=== PATIENT | female | born 1965 | race Caucasian/White ===

== ENCOUNTER 2018-10-16 18:10 | Inpatient (IN) | payer SELFPAY ==
[2018-10-16] MEDS ORDERED: Diltiazem HCl 125 MG, Admixture Fee 1 EACH in Sodium Chloride 0.9% 100 ML IVPB SCH (19:00)
[2018-10-16] MEDS ORDERED: niCARdipine 20MG In NaCl 20 MG/200 ML BAG ONE (19:18)
[2018-10-16] MEDS ORDERED: niCARdipine HCl 25 MG in Sodium Chloride 0.9% 250 ML 240 ML IVPB SCH (19:30)
[2018-10-16] MEDS ORDERED: Nitroglycerin 2% Ointment 1 INCH/1 GM Packet ONE (22:25)
[2018-10-17] MEDS ORDERED: niCARdipine 40MG In NaCl 40 MG/200 ML BAG IVPB SCH (00:18)
[2018-10-17] MEDS ORDERED: Acetaminophen 325 MG TAB PO PRN (00:18)
[2018-10-17] MEDS ORDERED: Ondansetron ODT 4 MG TAB PO PRN (00:18)
[2018-10-17] MEDS ORDERED: Ondansetron PF 4 MG/2 ML Vial IVP PRN (00:18)
[2018-10-17] MEDS ORDERED: niCARdipine HCl 25 MG in Sodium Chloride 0.9% 250 ML 240 ML IVPB SCH (00:45)
--- NOTE | 2018-10-17 01:50 | HP ---
The patient currently is in between doctors. She had been seeing Dr. Abigail Leavitt, but she has not seen her in several years. CHIEF COMPLAINT: I am having headaches for 3 days and I lost the vision out of my left eye. HISTORY OF PRESENT ILLNESS: Ms. Lopes is a very pleasant 53-year-old female, who has a history of hypertension. She says she has had high blood pressure for "years." It used to be well controlled when she was taking lisinopril hydrochlorothiazide. However, in the last 2 years, she has lost her insurance and has not been able to afford her medications. She has not been to the doctor in several years. She says that about 3 days ago, she started having an unusual headache, which was all over her head and then about 7:30 in the morning, she says that she suddenly lost the vision in her left eye. She says it was like a black [place] in the center with only a strip that she can see around it and this was in the left eye. She says on the right eye the vision was blurry. She denies having any chest pain except for occasional sharp twinges on the left side. She denies any shortness of breath. No nausea. No vomiting. She has not felt dizzy or lightheaded. She says that her headache actually got better in the morning before she even sought medical attention. She denies any swelling in her legs. No PND or orthopnea. She was evaluated in the ER. She had a CT scan of the brain done showing some white matter hypodensities which could be chronic small-vessel change, however, infarct could not completely be excluded and she was noted to have a blood pressure at the outside emergency room of 240 systolic and for this reason, she is being transferred and admitted to our facility. REVIEW OF SYSTEMS: All systems were reviewed and are negative except for that mentioned in the history of present illness. PAST MEDICAL HISTORY: Significant for hypertension and ARDS. PAST SURGICAL HISTORY: Significant for hysterectomy. ALLERGIES: PENICILLIN. SOCIAL HISTORY: She smokes about a half a pack to a pack a day and she has done this for about 20 years. Denies any alcohol use. No drug use. She is . She has 5 children. Her sister, Rosa Isela Paige would be her surrogate decision maker. Her children can also make decisions for her as well. CURRENT MEDICATIONS: None. FAMILY HISTORY: Significant for heart disease on both sides. She says that multiple family members on both sides "drop of either stroke or heart attack" and also heart failure and her grandmother had diabetes. PHYSICAL EXAMINATION: GENERAL: She is alert and oriented. She appears to be in no acute distress. She is well developed and well nourished. VITAL SIGNS: Currently, her blood pressure is 201/96, her heart rate is 90, respiratory rate of 17, temperature is 98.2. HEENT: Her pupils are equal, round, and reactive to light and accommodation. On the fundi, there was no evidence of any palpable edema or any hemorrhages. Throat, she has poor dentition but no oral lesions. Mucous membranes are slightly dry, but there is no erythema, no exudates. NECK: There is no adenopathy. No bruits. LUNGS: Clear to auscultation. There is no wheezing, no rhonchi. CARDIOVASCULAR: She has a normal S1 and S2. She did have a grade 2/6 systolic murmur. ABDOMEN: Obese. It is soft. It is nontender, nondistended. Positive for bowel sounds. There is no rebound, no guarding, no organomegaly. EXTREMITIES: She has no edema. There is no calf tenderness, no joint effusions. NEUROLOGIC: She has vision loss in the left eye. However, remaining cranial nerves are intact. Her muscle strength is 5/5 in both upper and lower extremities. SKIN AND INTEGUMENT: There are no skin changes and no rash. LABORATORY DATA: White blood cell count is 10.4, hemoglobin 14.4, hematocrit is 44.1, and platelet count is 247. Sodium 141, potassium 4.0, chloride is 109, CO2 is 21, BUN of 18, creatinine 0.79, glucose is 92. Urinalysis was negative and her CT scan as previously mentioned. ASSESSMENT: This is a pleasant 53-year-old female, who presents to the emergency room with hypertensive emergency with a sudden loss of vision in the left eye. 1. For the hypertensive emergency, she will need to be admitted to the ICU. Started on a Cardene drip with a goal of getting her blood pressure down about initially 25%, so in the range of 170 systolic and then slowly lower the blood pressure from there. There is a possibility of ischemic stroke as this could also be an amaurosis fugax. For this reason, we will get a carotid Doppler as well as an echo. Ophthalmology will be consulted as well. She will be monitored on telemetry for signs of irregular rhythm such as atrial fibrillation. 2. Tobacco abuse. She has been counseled on the dangers of smoking. We will also continue to stratify her risks for arteriosclerosis with checking a lipid panel. Further recommendations are to follow. Job ID: [id number]
[2018-10-17 04:38] LABS: Anion Gap 13 mmol/L (10-20); BUN (Urea Nitrogen) 16 mg/dL (9.8-20.1); Calc. Creatinine Clearance 0 mL/min (70-130); Calcium 9.7 mg/dL (7.8-10.44); Carbon Dioxide 23 mmol/L (22-29); Cardiac Risk 5.2 (Less than 4.5); Chloride 108 mmol/L (98-107); Cholesterol 193 mg/dl (< 200 Desired); Estimated GFR-MDRD 89; Glucose 90 mg/dL (70-105); HDL Cholesterol 37 mg/dL (>60 Neg Risk); LDL Cholesterol, Calculated 124 mg/dL; Potassium 3.8 mmol/L (3.5-5.1); Sodium 140 mmol/L (136-145); Triglycerides 161 mg/dL (Less than 150)
[2018-10-17 05:02] LABS: Eosinophils 3 % (0-10); Hemoglobin 14.8 g/dL (12.0-16.0); Lymphocytes 39 % (21-51); MDiff Complete? YES; Mean Corpuscular HGB CONC 33.5 g/dL (32.0-36.0); Mean Corpuscular Hemoglobin 31.3 pg (27.0-31.0); Mean Corpuscular Volume 93.3 fL (78.0-98.0); Mean Platelet Volume 8.2 fL (7.4-10.4); Monocytes 6 % (0-10); Neutrophil 52 % (42-75); Platelet Count 234 thou/uL (130-400); RBC Distribution Width 12.3 % (11.5-14.5); Red Blood Cell (RBC) Count 4.75 mill/uL (4.20-5.40); White Blood Cell (WBC) Count 10.4 thou/uL (4.8-10.8)
[2018-10-17] MEDS ORDERED: Enoxaparin Sodium 40 MG/0.4 ML SYRINGE ONE (09:23)
[2018-10-17] MEDS ORDERED: Famotidine/PF 20 mg/2ml Vial ONE (09:23)
[2018-10-17] MEDS ORDERED: Famotidine 20 MG TAB ONE (09:24)
[2018-10-17] MEDS: Famotidine 20 MG TAB PO SCH ×2 (09:27→21:19)
[2018-10-17] MEDS: Enoxaparin Sodium 40 MG/0.4 ML SYRINGE SC SCH (09:27)
[2018-10-17] MEDS ORDERED: Acetaminophen 325 MG TAB ONE (09:30)
[2018-10-17] MEDS ORDERED: hydrALAZINE 20 MG/ML VIAL SLOW IVP PRN (10:00)
--- NOTE | 2018-10-17 10:08 | ULT ---
Carotid arterial Doppler ultrasound: 10/17/2018 COMPARISON: None HISTORY: Sudden left-sided Vision loss, assess for carotid artery disease TECHNIQUE: Multiplanar grayscale sonographic imaging of the arterial structures of the neck obtained with color flow and spectral analysis. FINDINGS: Antegrade blood flow and normal arterial waveforms are documented within the carotid and ve rtebral systems bilaterally. Peak systolic velocity within the common carotid artery is 111 cm/s on the right and 82 cm/s on the l eft. Peak systolic velocity within the internal carotid artery is 110 cm/s on the right and 113 cm/s on th e left. The ICA/CCA ratio is 1.0 on the right and 1.4 on the left. IMPRESSION: No hemodynamically significant stenosis on the basis of sonographic velocity criteria.
[2018-10-17] MEDS ORDERED: Lisinopril 10 MG TAB ONE (10:15)
[2018-10-17] MEDS ORDERED: hydrALAZINE 20 MG/ML VIAL ONE (10:15)
--- NOTE | 2018-10-17 10:23 | PDOC.PN ---
- Subjective Encounter Start Date: 10/17/18 Encounter Start Time: 10:21 Ms. Lopes was seen today in follow-up of hypertensive Emergency. Her blood pressure was better last night, and the Cardene drip was discontinued. However, her blood pressure has rebounded. and her headache has returned. Her vision is about the same. - Objective Resuscitation Status - Order Detail: 10/16/18 19:32 Resuscitation Status Routine Resuscitation Status: FULL: Full Resuscitation MAR Reviewed: Yes Result Diagrams: 10/17/18 04:00 10/17/18 04:00 Phys Exam - Physical Examination HEENT: PERRLA Respiratory: no wheezing, no rales, no rhonchi, clear to auscultation bilateral Cardiovascular: RRR, no significant murmur, no rub Gastrointestinal: soft, non-tender, no distention, positive bowel sounds Musculoskeletal: no edema Dx/Plan (1) Hypertensive emergency Code(s): I16.1 - HYPERTENSIVE EMERGENCY Status: Acute (2) Sudden visual loss of left eye Code(s): H53.132 - SUDDEN VISUAL LOSS, LEFT EYE Status: Acute (3) Tobacco abuse Code(s): Z72.0 - TOBACCO USE Status: Chronic - Plan * Hypertensive Emergency- she was weaned off of the Cardene drip. Will re-start Lisinopril/HCT * Hydralazine PRN for elevated blood pressure * Tobacco abuse- discussed smoking cessation * Sudden vision loss- likely due to elevated blood pressure- she has been evaluated by Dr. Vazquez and thought to have a pre-retinal hemorrhage * MRI of the brain, carotid doppler, and Echo are pending .
[2018-10-17] MEDS: Lisinopril/Hydrochlorothiazide 20/25 mg Tablet PO SCH (10:34)
[2018-10-17 14:00] VITALS: BMI 33.3
[2018-10-17] MEDS: cloNIDine 0.1 MG TAB PO PRN (14:20)
--- NOTE | 2018-10-17 16:27 | MRI ---
MRI BRAIN WITHOUT CONTRAST: HISTORY: Sudden vision loss left eye CORRELATION: CT scan from 10/16/2018. FINDINGS: No restricted diffusion is seen. There are multiple foci of T2 prolongation in the periventricular wh ite matter, consistent with chronic small vessel ischemic disease. The ventricular size is appropriate and the basilar cisterns are patent. No evidence of acute infarct, hemorrhage, midline shift or abnormal extra-axial fluid collections is seen. The visualized paranasal sinuses and mastoid air cells are well-aerated. IMPRESSION: No evidence of acute intracranial process.
[2018-10-18] MEDS: cloNIDine 0.1 MG TAB PO PRN ×2 (00:04→12:34)
[2018-10-18] MEDS: Enoxaparin Sodium 40 MG/0.4 ML SYRINGE SC SCH (09:16)
[2018-10-18] MEDS: Famotidine 20 MG TAB PO SCH ×2 (09:17→20:26)
[2018-10-18] MEDS: Lisinopril/Hydrochlorothiazide 20/25 mg Tablet PO SCH (09:17)
--- NOTE | 2018-10-18 14:32 | PDOC.PN ---
- Subjective Encounter Start Date: 10/18/18 (f/u hypertension) Encounter Start Time: 14:29 Subjective: pt without complaints -denies any headache, cp/dyspnea -: no change noted in vision - Objective Resuscitation Status - Order Detail: 10/16/18 19:32 Resuscitation Status Routine Resuscitation Status: FULL: Full Resuscitation Vital Signs & Weight: Vital Signs (12 hours) Temp Pulse Resp BP Pulse Ox 10/18/18 12:27 98.3 F 86 16 187/91 H 97 10/18/18 07:40 97.6 F 65 18 177/78 H 97 10/18/18 04:00 98.0 F 71 18 138/70 95 Weight Weight 199 lb I&O: 10/17/18 10/18/18 10/19/18 06:59 06:59 06:59 Intake Total 880 Output Total 260 Balance 620 Result Diagrams: 10/17/18 04:00 10/17/18 04:00 EKG Reviewed by me: Yes (tele - sinus 60-70's) Phys Exam - Physical Examination Constitutional: NAD Respiratory: no wheezing, no rales, no rhonchi Cardiovascular: RRR, no significant murmur Gastrointestinal: soft, non-tender, no distention, positive bowel sounds Musculoskeletal: no edema Neurological: non-focal, moves all 4 limbs Psychiatric: normal affect Dx/Plan (1) Hypertensive emergency Code(s): I16.1 - HYPERTENSIVE EMERGENCY Status: Acute (2) Sudden visual loss of left eye Code(s): H53.132 - SUDDEN VISUAL LOSS, LEFT EYE Status: Acute (3) Tobacco abuse Code(s): Z72.0 - TOBACCO USE Status: Chronic - Plan * bp's not optimally controlled - requiring prn clonidine. * given diastolic dysfunction - start beta-jose francisco at low dose and titrate. continue current meds * * appreciate Ophthalmology eval by * * tobacco cessation encouraged * * dvt prophy - ambulatory * gi prophy - not indicated * code status full * * reviewed plan of care with patient, no questions or further needs at end of eval.
[2018-10-18] MEDS ORDERED: Metoprolol Tartrate 25 MG TAB PO SCH (16:00)
[2018-10-18] MEDS ORDERED: Nicotine 14 MG PATCH TD SCH (18:00)
--- NOTE | 2018-10-18 18:00 | PDOC.EVN ---
Event Note - Event Note Event Note: called by RN for pt requesting nicotine patch - smokes 1/2 ppd. Will order 14 mg patch
[2018-10-18] MEDS: Metoprolol Tartrate 25 MG TAB PO SCH (20:26)
[2018-10-19 07:02] LABS: Anion Gap 12 mmol/L (10-20); BUN (Urea Nitrogen) 27 mg/dL (9.8-20.1); Calc. Creatinine Clearance 113 mL/min (70-130); Calcium 9.5 mg/dL (7.8-10.44); Carbon Dioxide 26 mmol/L (22-29); Chloride 105 mmol/L (98-107); Estimated GFR-MDRD 74; Glucose 102 mg/dL (70-105); Sodium 139 mmol/L (136-145)
[2018-10-19 07:50] VITALS: TEMP 98.1
[2018-10-19] MEDS: Famotidine 20 MG TAB PO SCH (08:56)
[2018-10-19] MEDS: Metoprolol Tartrate 25 MG TAB PO SCH (08:56)
[2018-10-19] MEDS: Lisinopril/Hydrochlorothiazide 20/25 mg Tablet PO SCH (08:57)
[2018-10-19 11:39] VITALS: BP 181/85
--- NOTE | 2018-10-20 02:17 | DIS ---
DATE OF ADMISSION: 10/16/2018 DATE OF DISCHARGE: 10/19/2018 DISCHARGE DISPOSITION: Home. CONSULTANTS: Rj Vazquez MD, Ophthalmology. DISCHARGE MEDICATIONS: Medications are reconciled and all new. 1. Aspirin 81 mg daily. 2. Lisinopril-hydrochlorothiazide 20-25 one tablet p.o. daily, prescribed 30 tablets, further refills from primary care provider. 3. Metoprolol tartrate 25 mg p.o. b.i.d., prescription provided for 60 tablets/ 30 days supply. Further refills from primary care. 4. Nicotine patch 14 mg daily for 2 weeks, then 7 mg patch daily for 2 weeks, then stop. These are [id number]. USUAL HOME MEDICATIONS: None. FOLLOWUP: 1. Follow up with Dr. Vazquez as directed for monitoring of your vision. 2. Follow up with Dr. Leavitt recommended within 5 days to re-evaluate this hospitalization, monitor blood pressure and adjust medications and address any other health concerns. FINAL DIAGNOSES: 1. Acute vision loss secondary to bleeding anterior to the retina. 2. Hypertensive emergency with vision changes as noted above. HISTORY OF PRESENT ILLNESS: Ms. Lopes is a 53-year-old female, who has been off her medication with known high blood pressure, presented to the emergency room with complaint of headache and sudden vision loss in her left eye. She states that she only has had a black [place] in the center of her vision of her left eye and blurring of vision in her right eye. She had a blood pressure at an outside emergency room of 240 systolic and was transferred to this facility. HOSPITAL COURSE: The patient was admitted to the ICU and started on a Cardene drip with a goal of slow lowering of her blood pressure to about 170 systolic range. From there, she was transitioned to oral medication, transferred to telemetry, and underwent an evaluation for concern of stroke for vision changes as a result of stroke. She had an echocardiogram, which showed a normal ejection fraction and grade 1/3 diastolic dysfunction with moderate aortic regurgitation. She had a normal carotid ultrasound and a normal brain MRI. The patient was evaluated by Dr. Vazquez, who reports she had bleeding of a single vessel anterior to the retina and that currently there is blood overlying the retina causing vision changes on the left side. He states that it is a matter of time waiting for reabsorption of this blood to determine how well her vision will recover. I discussed with Dr. Vazquez starting low-dose aspirin, he reports that this would not be harmful to her vision, and may in fact in the future be helpful in addition to managing her blood pressure. The patient was transitioned over to lisinopril-hydrochlorothiazide (a medication that she had been on in the past), and she has tolerated this well. Her blood pressures with this medication alone were still in the 180s to 190 systolic. I started metoprolol at low dose yesterday and she has tolerated this well. Her resting heart rate and overnight was down into 55, and prior to that yesterday was in the 60s. She denies any fatigue, shortness of breath, or difficulty with ambulation. She will be discharged on this medication to follow up with her primary care. Consideration should be given to Cardiology consultation for monitoring of the aortic regurgitation, assistance with blood pressure medication, and any other needs. Tobacco cessation has been encouraged throughout this hospitalization, and she was started on the nicotine patch. We discussed how to continue this after discharge. The patient overall feeling well, blood pressures over the past 24 hours have been primarily in the 160s and 170s. PHYSICAL EXAMINATION: VITAL SIGNS: On day of discharge, her blood pressure 176/78, pulse 59, temp 98.1, respirations 16, and sats 97% on room air. GENERAL: Awake, alert, responsive, in no apparent distress. Able to speak in full sentences. LUNGS: Clear to auscultation bilaterally. HEART: Normal S1, S2. Regular rate and rhythm. No audible murmurs. ABDOMEN: Soft with present bowel sounds. EXTREMITIES: No clubbing, cyanosis, or edema. ACUTE FINDINGS AND TEST RESULTS: CBC 10.4, 14.8, 44.3, and 234. Chemistry; 139, 4.0, 105, 26, 27, 0.81, and 102. Triglycerides 161, cholesterol 193, LDL 124, HDL 37. Echocardiogram shows an EF of 55% to 60%. Grade 1 of 3 diastolic dysfunction, moderate mitral regurgitation, aortic valve sclerosis but opens well, moderate aortic regurgitation, mild tricuspid regurgitation. Carotid ultrasound is no hemodynamically significant stenosis. Brain MRI, no evidence of acute intracranial process. DIET: Heart healthy. ACTIVITY: As tolerated with fall precautions due to the change in patient's vision. DISCHARGE DISPOSITION: Home. Reviewed with the patient this hospitalization, the new medications, return for care precautions, initiation of low-dose aspirin, and the importance of followup care. No questions or further needs at the end of evaluation. Total time coordinating discharge is 40 minutes. Job ID: [id number]
== END 2018-10-19 15:19 | disposition home or self-care (01) | DRG 125 ==
LOC: ERS 18:10 → ERHOLD 18:25 → 2NO 23:29
PROVIDERS: ADMIT Internal Medicine; ATTEND Internal Medicine
DX: H35.62 Retinal hemorrhage, left eye (principal); I16.1 Hypertensive emergency; H53.132 Sudden visual loss, left eye; F17.210 Nicotine dependence, cigarettes, uncomplicated; I10 Essential (primary) hypertension; I08.3 Combined rheumatic disorders of mitral, aortic and tricuspid valves; Z90.710 Acquired absence of both cervix and uterus; Z88.0 Allergy status to penicillin
CPT/HCPCS: 36415; 70551; 80048; 80061; 85025; 93306; 93880; 96365; 96366; J0360; J1650; J3490; J7050; S0028